=== PATIENT | female | born 1965 | race Caucasian/White ===

== ENCOUNTER → 2019-02-07 | Outpatient (CLI) | payer OTHER | LOC: COL.RAD 15:00 | DX: Z01.812 Encounter for preprocedural laboratory examination (principal); N85.8 Other specified noninflammatory disorders of uterus | CPT/HCPCS: Q9967 ==

== ENCOUNTER → 2021-04-29 | Outpatient (CLI) | payer BC | LOC: COL.VAS 09:39 | DX: Z13.6 Encounter for screening for cardiovascular disorders (principal); M79.662 Pain in left lower leg ==

== ENCOUNTER 2022-12-02 14:31 | Outpatient (RCR) | payer BC | END 2022-12-02 14:36 | disposition home or self-care (01) | LOC: WSPT 14:31 | DX: M54.16 Radiculopathy, lumbar region (principal) ==

== ENCOUNTER 2024-03-01 11:00 | Outpatient (RCR) | payer BC | END 2024-03-11 | disposition home or self-care (01) | LOC: WSST | DX: R13.12 Dysphagia, oropharyngeal phase (principal) ==

== ENCOUNTER 2024-03-20 07:42 | Outpatient (RCR) | payer BC | END 2024-04-11 | disposition home or self-care (01) | LOC: WSST | DX: K21.9 Gastro-esophageal reflux disease without esophagitis (principal) ==